=== PATIENT | male | born 1965 | race Caucasian/White ===

== ENCOUNTER 2016-09-21 19:00 | Emergency (ER) | payer OTHER ==
--- NOTE | 2016-09-21 21:20 | RAD ---
Indication: RIGHT shoulder pain. Gaucher disease. Comparison: September 08, 2010 Technique: PA chest Report: Clear lungs and pleural spaces. Negative for pneumothorax. The heart, pulmonary vasculature, and mediastinal contours are unremarkable. Unremarkable osseous structures and soft tissue contours. IMPRESSION: Negative PA chest radiograph.
--- NOTE | 2016-09-21 21:22 | RAD ---
Indication: RIGHT chest pain. Gaucher disease. Complains of bone crisis. Comparison: None. Technique: AP and scapular Y views of the RIGHT scapula. Report: Normal articular alignment. Negative for fracture or diffuse or focal osseous lesions. Unremarkable soft tissue contours. IMPRESSION: Negative radiographic exam of the RIGHT scapula.
[2016-09-21 21:23] LABS: Hematocrit 41 % (42-52); Hemoglobin 14.1 g/dl (14.0-18.0); Mean Corpuscular HGB Conc 35 g/dl (31-36); Mean Corpuscular Hemoglobin 32 pg (27-31); Mean Corpuscular Volume 92 fL (80-94); Mean Platelet Volume 6 um3 (7.4-10.4); Red Blood Count 4.42 10^6/ul (4.0-5.4); Red Cell Distribution Width 13 % (10.5-15); White Blood Count 6.2 10^3/ul (3.5-10.8)
[2016-09-21 21:45] LABS: ALT 16 U/L (7-52); AST 19 U/L (13-39); Albumin 4.3 g/dL (3.2-5.2); Alkaline Phosphatase 64 U/L (34-104); Anion Gap 6 mmol/L (2-11); BUN/Creatinine Ratio 17.8 (8-20); Blood Urea Nitrogen 13 mg/dL (6-24); C Reactive Protein < 1.00 mg/L (< 5.00); CO2 Carbon Dioxide 29 mmol/L (22-32); Calcium 9.3 mg/dL (8.6-10.3); Chloride 104 mmol/L (101-111); EGFR African American 145.7 (>60); EGFR Non-African American 113.3 (>60); Globulin 2.7 g/dL (2-4); Glucose 101 mg/dL (70-100); Potassium 3.8 mmol/L (3.5-5.0); Sodium 139 mmol/L (133-145)
[2016-09-21 21:46] LABS: Urine Bacteria Absent (Absent); Urine Bilirubin Negative (Negative); Urine Glucose Negative (Negative); Urine Nitrite Negative (Negative)
--- NOTE | 2016-09-21 22:18 | RAD ---
Indication: Gaucher disease with bone crisis. RIGHT shoulder pain. Comparison: RIGHT scapula exam of the same date. Technique: Internal and external rotation AP and scapular Y views RIGHT shoulder Report: Normal acromioclavicular and glenohumeral joint alignment. Mild spurring at the greater tuberosity typically seen in association with rotator cuff pathology. The osseous structures are otherwise unremarkable. Negative for fracture. On the internal rotation view there is suggestion of a small focus of calcific tendinopathy involving the infraspinatus tendon. Unremarkable soft tissue contours. IMPRESSION: 1. Suggestion of rotator cuff tendinopathy at the supraspinatus and probable minimal focus of calcific tendinopathy at the infraspinatus. 2. No osseous lesion suspicious for marrow replacement evident.
[2016-09-21] MEDS ORDERED: Dexamethasone IV* 4 MG/ML 1 ML (4 MG) IM ONE (22:27)
[2016-09-21] MEDS ORDERED: Ketorolac INJ* 30 MG/ML 1 ML VIAL IV PUSH ONE (22:28)
[2016-09-21] MEDS ORDERED: Dexamethasone IV* 4 MG/ML 1 ML (4 MG) IV SLOW PU ONE (22:29)
--- NOTE | 2016-09-21 22:32 | ED ---
Nicolle Choe Anna, scribed for Alejandro Amin MD on 09/21/16 at 2030 . Upper Extremity Pain - HPI Summary HPI Summary: Patient is a 51 y/o male coming to [facility] presenting with RUE pain that began two weeks ago. It starts in his shoulder and radiates down and up. Advil and Tylenol have not alleviated the symptoms. His history is significant for Gaucher 's disease. He has had similar symptoms before, diagnosed as a bone crisis and usually treated with high doses of abx. - History of Current Complaint Chief Complaint: EDGeneral Stated Complaint: BONE CRISIS Time Seen by Provider: 09/21/16 20:24 Hx Obtained From: Patient - Allergies/Home Medications Allergies/Adverse Reactions: Allergies Allergy/AdvReac Type Severity Reaction Status Date / Time No Known Allergies Allergy Verified 09/21/16 19:18 PMH/Surg Hx/FS Hx/Imm Hx Previously Healthy: No - Hx Gaucher's disease Endocrine/Hematology History: Denies: Hx Diabetes Cardiovascular History: Denies: Hx Hypertension, Hx Pacemaker/ICD Sensory History: Denies: Hx Hearing Aid Psychiatric History: Reports: Hx Substance Abuse - opiates Denies: Hx Panic Disorder - Surgical History Surgery Procedure, Year, and Place: ABDOMINAL SURGERYS-TUMOR REMOVALS. LT SHOULDER SURGERY Infectious Disease History: No Infectious Disease History: Denies: Traveled Outside the [place] in Last 30 Days - Family History Known Family History: Positive: Other - Hx alcoholism in father - Social History Alcohol Use: None Substance Use Type: Reports: None Hx Tobacco Use: No Smoking Status (MU): Never Smoked Tobacco Review of Systems Constitutional: Negative Eyes: Negative ENT: Negative Cardiovascular: Negative Respiratory: Negative Gastrointestinal: Negative Genitourinary: Negative Positive: Arthralgia Skin: Negative Neurological: Negative Psychological: Normal All Other Systems Reviewed And Are Negative: Yes Physical Exam - Summary Physical Exam Summary: VITAL SIGNS: Reviewed. GENERAL: Patient is a well developed and nourished male who is lying comfortable in the stretcher. Patient is not in any acute respiratory distress. HEAD AND FACE: Normocephalic and atraumatic. EYES: PERRLA, EOMI x 2, No injected conjunctiva. EARS: Hearing grossly intact. Ear canals and tympanic membranes are WNL. MOUTH: Oropharynx within normal limits. NECK: Supple, trachea is midline, no adenopathy, no JVD. CHEST: Symmetric, no tenderness at palpation LUNGS: Clear to auscultation bilaterally. No wheezing or crackles. CVS: RRR,, S1 and S2 present, no murmurs or gallops appreciated. ABDOMEN: Soft, non-tender. No signs of distention. Positive bowel sounds. No rebound no guarding, and no masses palpated. No abdominal bruit or pulsations. EXTREMITIES: Decreased ROM in th Right shoulder secondary to pain. No deformity , no ecchymosis, no swelling no deformity. NEURO: Alert and oriented x 3. No acute neurological deficits. Speech is normal. SKIN: Dry and warm Triage Information Reviewed: Yes Vital Signs On Initial Exam: Initial Vitals Temp Pulse Resp BP Pulse Ox 97.9 F 62 18 125/75 99 09/21/16 19:19 09/21/16 19:19 09/21/16 19:19 09/21/16 19:19 09/21/16 19:19 Vital Signs Reviewed: Yes Diagnostics - Vital Signs Vital Signs Temp Pulse Resp BP Pulse Ox 09/21/16 19:19 97.9 F 62 18 125/75 99 - Laboratory Result Diagrams: 09/21/16 21:10 09/21/16 21:10 Lab Statement: Any lab studies that have been ordered have been reviewed, and results considered in the medical decision making process. - Radiology CXR Xray Interpretation: No Acute Changes Radiology Interpretation Completed By: Radiologist - IMPRESSION: Negative PA chest radiograph. R scapula XR Xray Interpretation: No Acute Changes Radiology Interpretation Completed By: Radiologist - IMPRESSION: Negative radiographic exam of the RIGHT scapula. Shoulder XR Xray Interpretation: Positive (See Comments) - IMPRESSION: 1. Suggestion of rotator cuff tendinopathy at the supraspinatus and probable minimal focus of calcific tendinopathy at the infraspinatus. 2. No osseous lesion suspicious for marrow replacement evident. Radiology Interpretation Completed By: Radiologist Re-Evaluation - Re-Evaluation First Eval Re-Evaluation Time: 22:27 Change: Improved - Patient is feeling better following medication. Course/Dx - Course Assessment/Plan: Patient is a 51 y/o male coming to [facility] presenting with RUE pain that began two weeks ago. It starts in his shoulder and radiates down and up. Advil and Tylenol have not alleviated the symptoms. His history is significant for Gaucher's disease. He has had similar symptoms before, diagnosed as a bone crisis and usually treated with high doses of abx. Shoulder Xray: 1. Suggestion of rotator cuff tendinopathy at the supraspinatus and probable minimal focus of calcific tendinopathy at the infraspinatus. 2. No osseous lesion suspicious for marrow replacement evident. CXR: No acute pathology. Scapula xray: No acute pathology. Blood work wnl. Normal WBC and CRP therefore signs of inflammation or infection. He was given Toradol for the pain. I discussed all the findings and test results with the patient and patient. Patient was instructed to return to the emergency room immediately if any of the symptoms return or worsens. They understand and agree. They were explained the possibility of an early abdominal pathology which was not detected at this time despite the physical exam and testing. They understand and agree. Abdominal exam before discharge: Soft,NT. No signs of distention. BS present. No rebound no guarding, and no masses palpated. Patient is alert and oriented. Patient is hemodynamically stable. Patient is to follow up with primary care physician in the next 24 hours. Patient and patients parents agree and understands. - Diagnoses Differential Diagnosis/HQI/PQRI: Positive: Bursitis, Contusion, Fracture (Open) , Strain, Sprain Provider Diagnoses: Shoulder pain, Rotator cuff tendonitis Discharge - Discharge Plan Condition: Stable Disposition: HOME Prescriptions: Methylprednisolone [Medrol Dosepak 4 MG*] 4 mg PO .SEE ELIZABETH INSTRUCTION #1 elizabeth Naproxen TAB* [Naprosyn TAB*] 500 mg PO Q8H PRN #20 tab PRN Reason: Pain The documentation as recorded by the Nicolle aranda Anna accurately reflects the service I personally performed and the decisions made by me, Alejandro Amin MD.
[2016-09-21 22:45] LABS: Erythrocyte Sed Rate 7 mm/Hr (0-20)
[2016-09-21 23:20] VITALS: BP 126/72
== END 2016-09-21 23:37 | disposition home or self-care (01) ==
LOC: ED 19:00
DX: M75.101 Unspecified rotator cuff tear or rupture of right shoulder, not specified as traumatic (principal); M25.511 Pain in right shoulder; Z86.19 Personal history of other infectious and parasitic diseases
CPT/HCPCS: 36415; 71010; 80053; 81003; 81015; 83605; 84484; 85025; 85384; 85610; 85652; 85730; 86140; 87040; 96372; 96374; 96375; 99283; J1100; J1885

== ENCOUNTER 2019-11-03 10:12 | Emergency (ER) | payer OTHER ==
[2019-11-03] MEDS ORDERED: NS 0.9% 1000 ML** 1,000 ML IV ONE (12:45)
[2019-11-03 13:04] LABS: ABS Eosinophils 0.2 10^3/ul (0-0.6); ABS Lymphocytes 1.3 10^3/ul (1.0-4.8); ABS Monocytes 0.5 10^3/ul (0-0.8); ABS Neutrophils 3.7 10^3/ul (1.5-7.7); Eosinophil % 3.9 %; Hematocrit 39 % (42-52); Hemoglobin 13.6 g/dL (14.0-18.0); Lymphocyte % 22.8 %; Mean Corpuscular HGB Conc 35 g/dL (31-36); Mean Corpuscular Hemoglobin 32 pg (27-31); Mean Corpuscular Volume 92 fL (80-94); Mean Platelet Volume 6.1 fL (7.4-10.4); Platelet Count 146 10^3/uL (150-450); Red Blood Count 4.28 10^6 /uL (4.18-5.48); Red Cell Distribution Width 14 % (10-15); White Blood Count 5.7 10^3/uL (3.5-10.8)
[2019-11-03 13:20] LABS: ALT 19 U/L (7-52); AST 30 U/L (13-39); Albumin 4.9 g/dL (3.2-5.2); Albumin/Globulin Ratio 1.9 (1-3); Alkaline Phosphatase 70 U/L (34-104); Anion Gap 6 mmol/L (2-11); Blood Urea Nitrogen 17 mg/dL (6-24); C Reactive Protein < 1.00 mg/L (<8.01); CO2 Carbon Dioxide 29 mmol/L (22-32); Calcium 9.6 mg/dL (8.6-10.3); Chloride 103 mmol/L (101-111); EGFR African American 120.2 (>60); EGFR Non-African American 99.3 (>60); Globulin 2.6 g/dL (2-4); Glucose 93 mg/dL (70-100); Potassium 4.1 mmol/L (3.5-5.0); Sodium 138 mmol/L (135-145); Total Protein 7.5 g/dL (6.4-8.9)
--- NOTE | 2019-11-03 13:27 | ED ---
Complex/Multi-Sys Presentation - HPI Summary HPI Summary: 54 y/o male presented to [facility] for a suspected bone crisis in his right arm that has been occurring for 4 weeks. He finds this concerning because bone crises usually resolve for him after about a week. He claims to be experiencing a bone crisis in his right hip as well. Pt also notes a fever of 101F. Pt was seen at [facility] for a similar episode in his left arm and was given steroids which he states helped his condition. He has hx of infection after bone crises and sees Dr. Duran as well as doctors at [facility]. 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 He also notes hx of addiction to narcotics. He has taken ibuprofen and Tylenol which he claims have not helped. Medications reviewed. Allergies noted. - History Of Current Complaint Chief Complaint: EDGeneral Time Seen by Provider: 11/03/19 12:34 Hx Obtained From: Patient Onset/Duration: Lasting Weeks, Still Present Timing: Weeks Severity Currently: Severe Location: Pain At: - right arm, right hip Associated Signs And Symptoms: Positive: Fever, Other - bone pain in right arm and right hip - Allergies/Home Medications Allergies/Adverse Reactions: Allergies Allergy/AdvReac Type Severity Reaction Status Date / Time No Known Allergies Allergy Verified 11/03/19 10:44 Home Medications: Home Medications predniSONE [Prednisone 20 MG TAB] 40 mg PO QAM 4 Days #8 tablet 11/03/19 [Rx] PMH/Surg Hx/FS Hx/Imm Hx Endocrine/Hematology History: Denies: Hx Diabetes Cardiovascular History: Denies: Hx Hypertension, Hx Pacemaker/ICD History: Denies: Hx Renal Disease Sensory History: Denies: Hx Hearing Aid Psychiatric History: Reports: Hx Substance Abuse - opiates Denies: Hx Panic Disorder - Surgical History Surgery Procedure, Year, and Place: ABDOMINAL SURGERYS-TUMOR REMOVALS 15-18 TIMES. LT SHOULDER SURGERY Infectious Disease History: No Infectious Disease History: Denies: Traveled Outside the [place] in Last 30 Days - Family History Known Family History: Positive: Other - Hx alcoholism in father - Social History Alcohol Use: None Substance Use Type: Reports: None Hx Tobacco Use: No Smoking Status (MU): Never Smoked Tobacco Review of Systems Positive: Fever - claimed by pt Positive: Other - bone pain in right arm and right hip All Other Systems Reviewed And Are Negative: Yes Physical Exam - Summary Physical Exam Summary: Constitutional: Well-developed, Well-nourished, Alert. (-) Distressed Skin: Warm, Dry HENT: Normocephalic; Atraumatic Eyes: Conjunctiva normal Neck: Musculoskeletal ROM normal neck. (-) JVD, (-) Stridor, (-) Tracheal deviation Cardio: Rhythm regular, rate normal, Heart sounds normal; Intact distal pulses; Radial pulses are 2+ and symmetric. (-) Murmur Pulmonary/Chest wall: Effort normal. (-) Respiratory distress, (-) Wheezes, (-) Rales Abd: Soft, (-) tenderness, (-) Distension, (-) Guarding, (-) Rebound Musculoskeletal: (-) Edema, Good pulses bilaterally in radius, No calf tenderness, No venous cords, No pain with dorsiflexion of foot. Not moving right arm fully but no bony tenderness. No tenderness in right hip Lymph: (-) Cervical adenopathy Neuro: Alert, Oriented x3 Psych: Mood and affect Normal Triage Information Reviewed: Yes Vital Signs On Initial Exam: Initial Vitals Temp Pulse Resp BP Pulse Ox 98.1 F 64 16 175/60 97 11/03/19 10:40 11/03/19 10:40 11/03/19 10:40 11/03/19 10:40 11/03/19 10:40 Vital Signs Reviewed: Yes Procedures - Sedation Patient Received Moderate/Deep Sedation with Procedure: No Diagnostics - Vital Signs Vital Signs Temp Pulse Resp BP Pulse Ox 11/03/19 10:40 98.1 F 64 16 175/60 97 - Laboratory Lab Results: Lab Results 11/03/19 11/03/19 Range/Units 12:53 12:53 WBC 5.7 (3.5-10.8) 10^3/uL RBC 4.28 (4.18-5.48) 10^6 /uL Hgb 13.6 L (14.0-18.0) g/dL Hct 39 L (42-52) % MCV 92 (80-94) fL MCH 32 H (27-31) pg MCHC 35 (31-36) g/dL RDW 14 (10-15) % Plt Count 146 L (150-450) 10^3/uL MPV 6.1 L (7.4-10.4) fL Neut % (Auto) 64.0 % Lymph % (Auto) 22.8 % [place] % (Auto) 8.6 % Eos % (Auto) 3.9 % Baso % (Auto) 0.7 % Absolute Neuts (auto) 3.7 (1.5-7.7) 10^3/ul Absolute Lymphs (auto) 1.3 (1.0-4.8) 10^3/ul Absolute Monos (auto) 0.5 (0-0.8) 10^3/ul Absolute Eos (auto) 0.2 (0-0.6) 10^3/ul Absolute Basos (auto) 0.0 (0-0.2) 10^3/ul Absolute Nucleated RBC 0.0 10^3/ul Nucleated RBC % 0.0 ESR Pending Sodium 138 (135-145) mmol/L Potassium 4.1 (3.5-5.0) mmol/L Chloride 103 (101-111) mmol/L Carbon Dioxide 29 (22-32) mmol/L Anion Gap 6 (2-11) mmol/L BUN 17 (6-24) mg/dL Creatinine 0.81 (0.67-1.17) mg/dL Est GFR ( Amer) 120.2 (>60) Est GFR (Non-Af Amer) 99.3 (>60) BUN/Creatinine Ratio 21.0 H (8-20) Glucose 93 (70-100) mg/dL Calcium 9.6 (8.6-10.3) mg/dL Total Bilirubin 0.90 (0.2-1.0) mg/dL AST 30 (13-39) U/L ALT 19 (7-52) U/L Alkaline Phosphatase 70 (34-104) U/L C-Reactive Protein < 1.00 (<8.01) mg/L Total Protein 7.5 (6.4-8.9) g/dL Albumin 4.9 (3.2-5.2) g/dL Globulin 2.6 (2-4) g/dL Albumin/Globulin Ratio 1.9 (1-3) Result Diagrams: 11/03/19 12:53 11/03/19 12:53 Lab Statement: Any lab studies that have been ordered have been reviewed, and results considered in the medical decision making process. - Radiology shoulder x-ray Radiology Interpretation Completed By: Radiologist Summary of Radiographic Findings: IMPRESSION: ELEVATION OF THE HUMERAL HEAD RELATIVE TO THE BONY GLENOID LABRUM CAN BE A. SECONDARY SIGN OF ROTATOR CUFF INSTABILITY AND/OR INJURY. This report was reviewed by the ED physician. shoulder xray Radiology Interpretation Completed By: Radiologist Summary of Radiographic Findings: IMPRESSION: ELEVATION OF THE HUMERAL HEAD RELATIVE TO THE BONY GLENOID LABRUM CAN BE A. SECONDARY SIGN OF ROTATOR CUFF INSTABILITY AND/OR INJURY. This report was reviewed by the ED physician. hip/pel xray Radiology Interpretation Completed By: Radiologist Summary of Radiographic Findings: IMPRESSION: In the medullary cavity of the proximal right femoral metaphysis there are 2. sclerotic foci exhibiting benign radiographic characteristics. There are no prior. radiographs to comment on chronicity. Differential diagnosis includes chronic bony. infarcts which is a feature of Gaucher disease. Differential diagnosis also includes. enchondroma or nonossifying fibroma. This report was reviewed by the ED physician. Complex Multi-Symp Course/Dx Course Of Treatment: Patient is here with 4 weeks of pain in his right shoulder in 1 week of pain in his right hip. Patient has a complex medical history as he has Gaucher disease. Patient has had multiple episodes of bony crisis and osteomyelitis in his life. Patient was addicted to pain medication earlier in his life so he does not want any opiate pain medication. Patient had x-rays performed which showed some sclerotic lesions and possible rotator cuff injury but no signs of osteomyelitis. Patient has no leukocytosis, a normal CRP, and a normal ESR. Oncology was called and they agree with my plan for steroids as he's had relief with this in the past. Patient will call Dr. Duran tomorrow for an appointment early this week. - Diagnoses Provider Diagnoses: Gaucher disease, Right shoulder pain, Right hip pain - Physician Notifications Discussed Care Of Patient With: Ino Castro Time Discussed With Above Provider: 15:01 Instructed by Provider To: Other - Pt case was discussed with Dr. Castro, who recommends a course of steroids and follow up in the clinic. Discharge ED - Sign-Out/Discharge Documenting (check all that apply): Patient Departure - dc - Discharge Plan Condition: Stable Disposition: HOME Prescriptions: predniSONE [Prednisone 20 MG TAB] 40 mg PO QAM 4 Days #8 tablet Referrals: Charly Duran MD [Primary Care Provider] - Additional Instructions: PLEASE RETURN TO EMERGENCY DEPARTMENT FOR ANY FEVER, CHILLS, UNCONTROLLABLE PAIN , OR OTHER CONCERNING SYMPTOMS. Please picker and sorter load and unload prescription, take medications as prescribed, and follow up with Dr. Duran. Please make all follow-ups in 1-3 days unless I advise you otherwise. - Billing Disposition and Condition Condition: STABLE Disposition: Home - Attestation Statements Document Initiated by Chaparro: Yes Documenting Scribe: Miquel Lai Provider For Whom Chaparro is Documenting (Include Credential): Owen Whiting MD Scribe Attestation: Miquel Choe, scribed for Owen Whiting MD on 11/03/19 at 1548. Scribe Documentation Reviewed: Yes Provider Attestation: The documentation as recorded by the Miquel aranda accurately reflects the service I personally performed and the decisions made by , Owen Whiting MD Status of Scribe Document: Viewed
[2019-11-03 14:07] LABS: Erythrocyte Sed Rate 6 mm/Hr (0-19)
[2019-11-03] MEDS ORDERED: Dexamethasone IV* 4 MG/ML 1 ML (4 MG) IV SLOW PU ONE (15:03)
[2019-11-03] MEDS ORDERED: methylPREDNISolone 125 MG* 2 ML VIAL IV ONE (15:05)
[2019-11-03 15:45] VITALS: BP 117/76
== END 2019-11-03 15:43 | disposition home or self-care (01) ==
LOC: ED 10:12
DX: E75.22 Gaucher disease (principal); M25.511 Pain in right shoulder; M25.551 Pain in right hip; Z90.81 Acquired absence of spleen
CPT/HCPCS: 36415; 80053; 85025; 85652; 86140; 87040; 96361; 96374; 99283; J2930